=== PATIENT | female | born 1950 | race Caucasian/White ===

== ENCOUNTER → 2016-09-27 | Outpatient (CLI) | payer BC ==
[~2016-09-27] MED LIST: ABILIFY5 MG PO; AMITIZA24 MCG PO; ASPIRIN81 MG PO; ATIVAN1 MG PO; CALCIUM WITH VI1 TAB PO; CARAFATE1 G1 PO; ESTRADIOL1 MG PO; HYDROCODONE BIT1 T11 PO; HYOSCYAMINE0.125 M5 PO; LEVOTHYROXIN0.025 MG PO; LEVOTHYROXINE0.1 MG PO; LOSARTAN POTASS25 M1 PO; LOVAZA1 GM PO; MEDROL DOSEPAK4 MG PO; NORTRIPTYLINE50 MG PO; POTASSIUM CITR10 MEQ PO; PREMARIN0.3 MG PO; ROBITUSSIN AC 110 ML PO; SIMVASTATIN20 MG PO; SIMVASTATIN5 MG PO; SPIRIVA18 MCG PO; VENTOLIN H0.09 MG/AC INH
[2016-09-27 09:50] LABS: EST GLOM FILT AFRICAN AMERICAN > 60 ml/min
== END | disposition home or self-care (01) ==
LOC: LAB 08:53 → CT 09:00
PROVIDERS: Radiology Diagnostic Radiology
DX: R06.02 Shortness of breath (principal); R05 Cough; J44.9 Chronic obstructive pulmonary disease, unspecified

== ENCOUNTER → 2017-01-31 | Outpatient (CLI) | payer BC ==
[2017-01-31 13:11] LABS: EST GLOM FILT AFRICAN AMERICAN > 60 ml/min
== END | disposition home or self-care (01) ==
LOC: MRI 12:38
PROVIDERS: Internal Medicine
DX: I65.23 Occlusion and stenosis of bilateral carotid arteries (principal); G45.0 Vertebro-basilar artery syndrome

== ENCOUNTER → 2017-10-23 | Outpatient (CLI) | payer MEDICARE | END | disposition home or self-care (01) | LOC: MAMMO 10-16 13:42 | DX: Z12.31 Encounter for screening mammogram for malignant neoplasm of breast (principal) ==

== ENCOUNTER → 2018-01-23 | Outpatient (CLI) | payer MEDICARE | END | disposition home or self-care (01) | LOC: US 09:40 | DX: I65.21 Occlusion and stenosis of right carotid artery (principal) ==

== ENCOUNTER → 2018-03-27 | Outpatient (CLI) | payer MEDICARE | END | disposition home or self-care (01) | LOC: MRI 08:47 | DX: R41.3 Other amnesia (principal) ==

== ENCOUNTER → 2018-07-24 | Outpatient (CLI) | payer MEDICARE ==
[~2018-07-24] MED LIST changes: +PREDNISONE50 MG PO; +ZITHROMAX250 MG PO
== END | disposition home or self-care (01) ==
LOC: US 13:44
DX: I65.23 Occlusion and stenosis of bilateral carotid arteries (principal)

== ENCOUNTER → 2018-12-04 | Outpatient (CLI) | payer MEDICARE | END | disposition home or self-care (01) | LOC: MAMMO 10:00 | DX: Z12.31 Encounter for screening mammogram for malignant neoplasm of breast (principal) ==

== ENCOUNTER → 2019-07-08 | Outpatient (CLI) | payer MEDICARE ==
[2019-07-08 10:36] LABS: BASO % 0.4 % (0.0-1.0); EOS % 0.7 % (1.0-4.0); HEMOGLOBIN 13.6 g/dl (12.0-16.0); LYMPH # 1.7 10*3/uL (1.3-4.4); LYMPH % 29.5 % (27.0-41.0); MEAN CELL VOLUME 94.2 fl (81.0-99.0); MEAN CORPUSCULAR HGB 30.5 pg (27.0-31.0); MEAN CORPUSCULAR HGB CONC 32.4 g/dl (33.0-37.0); MEAN PLATELET VOLUME 10.7 fl (9.6-12.3); MONO # 0.5 10*3/uL (0.1-1.0); MONO % 8.3 % (3.0-9.0); NEUT # 3.5 10*3/uL (2.3-7.9); NEUT % 60.7 % (47.0-73.0); PLATELET COUNT AUTOMATED 212 10*3/uL (130-400); RED BLOOD COUNT 4.46 10*6/uL (4.10-5.10); RED CELL DISTRI WIDTH 12.1 % (0-14.5); WHITE BLOOD COUNT 5.7 10*3/uL (4.8-10.8)
[2019-07-08 11:04] LABS: ALBUMIN 4.1 gm/dl (3.1-4.5); ALKALINE PHOSPHATASE 96 U/L (45-117); BUN 15 mg/dl (7-24); CHLORIDE 99 mmol/L (98-107); CHOLESTEROL 255 mg/dL (<200); HDL CHOLESTEROL 68 mg/dl (40-60); LDL CHOLESTEROL 134 mg/dL (9-159); POTASSIUM 4.4 mmol/L (3.5-5.1); SGOT/AST 32 IU/L (3-35); SGPT/ALT 38 U/L (12-78); SODIUM 135 mmol/L (136-145); TOTAL PROTEIN 7.6 gm/dL (6.4-8.2); TRIGLYCERIDES 265 mg/dl (<150); VLDL CHOLESTEROL 53 mg/dL (6-40)
[2019-07-08 11:09] LABS: FREE T4 1.02 ng/dl (0.76-1.46)
[2019-07-08 11:26] LABS: VITAMIN D, 25-HYDROXY 40.5 ng/mL (30-100)
== END | disposition home or self-care (01) ==
LOC: LAB 10:13 → CT 11:00
PROVIDERS: Internal Medicine
DX: R06.02 Shortness of breath (principal); I10 Essential (primary) hypertension; E78.2 Mixed hyperlipidemia; E55.9 Vitamin D deficiency, unspecified; D52.9 Folate deficiency anemia, unspecified; D51.9 Vitamin B12 deficiency anemia, unspecified; R05 Cough

== ENCOUNTER → 2019-08-20 | Outpatient (CLI) | payer MEDICARE | END | disposition home or self-care (01) | LOC: CP 10:17 | DX: R05 Cough (principal); R06.02 Shortness of breath ==

== ENCOUNTER → 2019-08-26 | Outpatient (CLI) | payer MEDICARE | END | disposition home or self-care (01) | LOC: US 10:04 | DX: I65.23 Occlusion and stenosis of bilateral carotid arteries (principal) ==

== ENCOUNTER → 2019-09-22 | Outpatient (CLI) | payer MEDICARE | END | disposition home or self-care (01) | LOC: US 14:09 | DX: N95.0 Postmenopausal bleeding (principal) ==

== ENCOUNTER → 2020-03-31 | Outpatient (CLI) | payer MEDICARE | END | disposition home or self-care (01) | LOC: MAMMO 09:03 | DX: Z12.31 Encounter for screening mammogram for malignant neoplasm of breast (principal) ==

== ENCOUNTER → 2020-08-24 | Outpatient (CLI) | payer MEDICARE ==
[~2020-08-24] MED LIST changes: +CALCIUM 600 +1 EAC2 PO; +ESOMEPRAZOLE MA40 M1 PO; +FLOVENT HFA12 GM INH; -LEVOTHYROXIN0.025 MG PO; +LEVOTHYROXINE100 MC1 PO; +LEXAPRO5 M1 PO; +PLAVIX75 M1 PO; +RIVASTIGMINE TAR3 M1 PO; +TESSALON PERLE100 MG PO
== END | disposition home or self-care (01) ==
LOC: US 13:00
PROVIDERS: ATTEND Surgery Vascular Surgery
DX: I65.23 Occlusion and stenosis of bilateral carotid arteries (principal)

== ENCOUNTER 2020-08-31 22:55 | Emergency (ER) | payer MEDICARE ==
[~2020-08-31] VITALS: Ht 162.5 cm; Wt 68.0 kg
[~2020-08-31 22:55] MED LIST changes: -CALCIUM 600 +1 EAC2 PO; -ESOMEPRAZOLE MA40 M1 PO; -FLOVENT HFA12 GM INH; -LEXAPRO5 M1 PO; -PLAVIX75 M1 PO; -RIVASTIGMINE TAR3 M1 PO; -TESSALON PERLE100 MG PO
[2020-08-31] MEDS ORDERED: RIVASTIGMINE TAR3 M1 PO (23:55)
[2020-08-31] MEDS ORDERED: TESSALON PERLE100 MG PO (23:55)
[2020-08-31] MEDS ORDERED: ESOMEPRAZOLE MA40 M1 PO (23:57)
[2020-08-31] MEDS ORDERED: LEXAPRO5 M1 PO (23:58)
[2020-09-01] MEDS ORDERED: PLAVIX75 M1 PO
[2020-09-01] MEDS ORDERED: FLOVENT HFA12 GM INH
[2020-09-01] MEDS ORDERED: CALCIUM 600 +1 EAC2 PO (00:04)
== END 2020-09-01 01:30 | disposition home or self-care (01) ==
LOC: ED 22:55
DX: I10 Essential (primary) hypertension (principal); Z91.041 Radiographic dye allergy status; Z79.82 Long term (current) use of aspirin; Z79.899 Other long term (current) drug therapy; Z79.2 Long term (current) use of antibiotics

== ENCOUNTER 2020-10-04 11:26 | Emergency (ER) | payer MEDICARE ==
[~2020-10-04] VITALS: Ht 162.5 cm; Wt 67.6 kg
[~2020-10-04 11:26] MED LIST changes: +CALCIUM 600 +1 EAC2 PO; +ESOMEPRAZOLE MA40 M1 PO; +FLOVENT HFA12 GM INH; +LEXAPRO5 M1 PO; +PLAVIX75 M1 PO; +RIVASTIGMINE TAR3 M1 PO; +TESSALON PERLE100 MG PO
[2020-10-04 12:35] LABS: BASO % 0.3 % (0.0-1.0); EOS # 0.1 10*3/uL (0.0-0.4); HEMATOCRIT 40.7 % (37.0-47.0); LYMPH # 1.5 10*3/uL (1.3-4.4); LYMPH % 25.5 % (27.0-41.0); MEAN CELL VOLUME 91.5 fl (81.0-99.0); MEAN CORPUSCULAR HGB 29.4 pg (27.0-31.0); MEAN CORPUSCULAR HGB CONC 32.2 g/dl (33.0-37.0); MEAN PLATELET VOLUME 11.1 fl (9.6-12.3); MONO # 0.4 10*3/uL (0.1-1.0); MONO % 6.4 % (3.0-9.0); NEUT % 66.5 % (47.0-73.0); PLATELET COUNT AUTOMATED 171 10*3/uL (130-400); RED BLOOD COUNT 4.45 10*6/uL (4.10-5.10); RED CELL DISTRI WIDTH 12.4 % (0-14.5)
[2020-10-04 12:49] LABS: ACT PARTIAL THROMBO TIME 23.5 SECONDS (20.0-32.1)
[2020-10-04 12:52] LABS: ALKALINE PHOSPHATASE 84 U/L (45-117); BUN 9 mg/dl (7-24); CHLORIDE 103 mmol/L (98-107); POTASSIUM 4.1 mmol/L (3.5-5.1); SGOT/AST 21 IU/L (3-35); SGPT/ALT 32 U/L (12-78); SODIUM 137 mmol/L (136-145); TOTAL PROTEIN 7.4 gm/dL (6.4-8.2)
[2020-10-04 13:01] LABS: TROPONIN I < 0.015 ng/ml (<0.045)
== END 2020-10-04 13:53 | disposition home or self-care (01) ==
LOC: ED 11:26
PROVIDERS: Family Medicine
DX: I10 Essential (primary) hypertension (principal); M71.21 Synovial cyst of popliteal space [Baker], right knee; M79.89 Other specified soft tissue disorders; G43.909 Migraine, unspecified, not intractable, without status migrainosus; Z91.041 Radiographic dye allergy status; Z79.899 Other long term (current) drug therapy; Z79.82 Long term (current) use of aspirin; Z90.711 Acquired absence of uterus with remaining cervical stump; Z98.890 Other specified postprocedural states; Z87.891 Personal history of nicotine dependence

== ENCOUNTER → 2020-11-03 | Outpatient (CLI) | payer MEDICARE | END | disposition home or self-care (01) | LOC: US 11-02 13:30 | PROVIDERS: ATTEND Podiatrist Foot & Ankle Surgery | DX: M71.21 Synovial cyst of popliteal space [Baker], right knee (principal); M79.89 Other specified soft tissue disorders ==

== ENCOUNTER → 2020-11-23 | Outpatient (CLI) | payer MEDICARE | END | disposition home or self-care (01) | LOC: MRI 12:34 | PROVIDERS: ATTEND Podiatrist Foot & Ankle Surgery | DX: S86.811A Strain of other muscle(s) and tendon(s) at lower leg level, right leg, initial encounter (principal); M19.071 Primary osteoarthritis, right ankle and foot; M25.471 Effusion, right ankle; M25.771 Osteophyte, right ankle; R60.0 Localized edema; M65.861 Other synovitis and tenosynovitis, right lower leg; M76.61 Achilles tendinitis, right leg; M72.2 Plantar fascial fibromatosis; X58.XXXA Exposure to other specified factors, initial encounter; Y93.89 Activity, other specified; Y92.89 Other specified places as the place of occurrence of the external cause; Y99.8 Other external cause status ==

== ENCOUNTER → 2021-01-18 | Outpatient (CLI) | payer MEDICARE | END | disposition home or self-care (01) | LOC: CT 07:56 | PROVIDERS: ATTEND Internal Medicine | DX: I25.10 Atherosclerotic heart disease of native coronary artery without angina pectoris (principal) ==

== ENCOUNTER → 2021-04-26 | Outpatient (CLI) | payer MEDICARE ==
[2021-04-26 11:01] LABS: BASO % 0.2 % (0.0-1.0); EOS # 0.1 10*3/uL (0.0-0.4); EOS % 1.9 % (1.0-4.0); HEMATOCRIT 39.9 % (37.0-47.0); LYMPH # 1.5 10*3/uL (1.3-4.4); LYMPH % 27.7 % (27.0-41.0); MEAN CELL VOLUME 90.7 fl (81.0-99.0); MEAN CORPUSCULAR HGB 29.8 pg (27.0-31.0); MEAN CORPUSCULAR HGB CONC 32.8 g/dl (33.0-37.0); MONO # 0.4 10*3/uL (0.1-1.0); MONO % 7.3 % (3.0-9.0); NEUT # 3.3 10*3/uL (2.3-7.9); NEUT % 62.7 % (47.0-73.0); PLATELET COUNT AUTOMATED 203 10*3/uL (130-400); RED CELL DISTRI WIDTH 12.5 % (0-14.5); WHITE BLOOD COUNT 5.2 10*3/uL (4.8-10.8)
[2021-04-26 11:18] LABS: ALBUMIN 3.8 gm/dl (3.1-4.5); ALKALINE PHOSPHATASE 94 U/L (45-117); BUN 9 mg/dl (7-24); CHLORIDE 101 mmol/L (98-107); CHOLESTEROL 193 mg/dL (<200); CREATININE 0.65 mg/dL (0.55-1.02); FREE T4 1.28 ng/dl (0.76-1.46); LDL CHOLESTEROL 100 mg/dL (9-159); POTASSIUM 4.6 mmol/L (3.5-5.1); SGOT/AST 16 IU/L (3-35); SGPT/ALT 27 U/L (12-78); SODIUM 136 mmol/L (136-145); TOTAL PROTEIN 7.6 gm/dL (6.4-8.2); TRIGLYCERIDES 191 mg/dl (<150)
[2021-04-26 11:23] LABS: THYROID STIM HORMONE (HS) 0.055 uIU/ml (0.358-4.75)
[2021-04-26 12:03] LABS: VITAMIN D, 25-HYDROXY 39.2 ng/mL (30-100)
== END | disposition home or self-care (01) ==
LOC: MAMMO 00:08 → LAB 00:08 → MAMMO 11:00
PROVIDERS: ATTEND Internal Medicine
DX: Z12.31 Encounter for screening mammogram for malignant neoplasm of breast (principal); N64.89 Other specified disorders of breast; I10 Essential (primary) hypertension; E78.2 Mixed hyperlipidemia; E55.9 Vitamin D deficiency, unspecified; Z00.01 Encounter for general adult medical examination with abnormal findings

== ENCOUNTER → 2021-10-18 | Outpatient (CLI) | payer MEDICARE | LOC: US 08:48 | PROVIDERS: ATTEND Internal Medicine | DX: R10.9 Unspecified abdominal pain (principal) ==

== ENCOUNTER → 2021-11-22 | Outpatient (CLI) | payer MEDICARE | END | disposition home or self-care (01) | LOC: US 10:00 | PROVIDERS: ATTEND Surgery Vascular Surgery | DX: I65.23 Occlusion and stenosis of bilateral carotid arteries (principal) ==

== ENCOUNTER → 2022-01-04 | Outpatient (CLI) | payer MEDICARE | END | disposition home or self-care (01) | LOC: CT 08:49 | PROVIDERS: ATTEND Internal Medicine | DX: I70.0 Atherosclerosis of aorta (principal); J92.9 Pleural plaque without asbestos; I25.10 Atherosclerotic heart disease of native coronary artery without angina pectoris; K44.9 Diaphragmatic hernia without obstruction or gangrene ==

== ENCOUNTER 2022-02-06 14:50 | Emergency (ER) | payer MEDICARE ==
[~2022-02-06] VITALS: Ht 162.5 cm; Wt 63.5 kg
[2022-02-06 20:04] LABS: BASO % 0.3 % (0.0-1.0); EOS # 0.1 10*3/uL (0.0-0.4); EOS % 1.2 % (1.0-4.0); HEMATOCRIT 37.2 % (37.0-47.0); LYMPH # 0.9 10*3/uL (1.3-4.4); LYMPH % 12.3 % (27.0-41.0); MEAN CELL VOLUME 88.4 fl (81.0-99.0); MEAN CORPUSCULAR HGB CONC 32.8 g/dl (33.0-37.0); MEAN PLATELET VOLUME 10.5 fl (9.6-12.3); MONO # 0.6 10*3/uL (0.1-1.0); MONO % 8.4 % (3.0-9.0); NEUT # 5.8 10*3/uL (2.3-7.9); NEUT % 77.4 % (47.0-73.0); PLATELET COUNT AUTOMATED 251 10*3/uL (130-400); RED BLOOD COUNT 4.21 10*6/uL (4.10-5.10); RED CELL DISTRI WIDTH 13.2 % (0-14.5); WHITE BLOOD COUNT 7.5 10*3/uL (4.8-10.8)
[2022-02-06 20:21] LABS: ALKALINE PHOSPHATASE 91 U/L (45-117); BUN 8 mg/dl (7-24); CHLORIDE 96 mmol/L (98-107); CREATININE 0.59 mg/dL (0.55-1.02); POTASSIUM 4.1 mmol/L (3.5-5.1); SGOT/AST 26 IU/L (3-35); SGPT/ALT 29 U/L (12-78); SODIUM 133 mmol/L (136-145); TOTAL PROTEIN 7.3 gm/dL (6.4-8.2)
[2022-02-06] MEDS ORDERED: PREDNISONE20 M1 PO (22:31)
== END 2022-02-06 22:51 | disposition home or self-care (01) ==
LOC: ED 14:50
PROVIDERS: Internal Medicine
DX: U07.1 COVID-19 (principal); M94.0 Chondrocostal junction syndrome [Tietze]

== ENCOUNTER 2022-02-16 08:36 | Emergency (ER) | payer MEDICARE ==
[~2022-02-16] VITALS: Ht 162.5 cm; Wt 72.6 kg
[~2022-02-16 08:36] MED LIST changes: +PREDNISONE20 M1 PO
[2022-02-16 09:02] LABS: BASO % 0.2 % (0.0-1.0); EOS # 0.1 10*3/uL (0.0-0.4); EOS % 0.7 % (1.0-4.0); HEMATOCRIT 34.9 % (37.0-47.0); LYMPH # 0.7 10*3/uL (1.3-4.4); LYMPH % 8.6 % (27.0-41.0); MEAN CELL VOLUME 87.5 fl (81.0-99.0); MEAN CORPUSCULAR HGB 29.3 pg (27.0-31.0); MEAN CORPUSCULAR HGB CONC 33.5 g/dl (33.0-37.0); MEAN PLATELET VOLUME 10.9 fl (9.6-12.3); MONO # 0.6 10*3/uL (0.1-1.0); MONO % 6.7 % (3.0-9.0); NEUT % 83.4 % (47.0-73.0); PLATELET COUNT AUTOMATED 155 10*3/uL (130-400); RED BLOOD COUNT 3.99 10*6/uL (4.10-5.10); RED CELL DISTRI WIDTH 13.1 % (0-14.5); WHITE BLOOD COUNT 8.4 10*3/uL (4.8-10.8)
[2022-02-16 09:13] LABS: ACT PARTIAL THROMBO TIME 28.7 SECONDS (20.0-32.1); INTERNATIONAL NORM RATIO 1.2 (2.0-3.5)
[2022-02-16 09:24] LABS: ALKALINE PHOSPHATASE 91 U/L (45-117); BUN 6 mg/dl (7-24); CHLORIDE 98 mmol/L (98-107); CREATININE 0.56 mg/dL (0.55-1.02); POTASSIUM 3.7 mmol/L (3.5-5.1); SGOT/AST 28 IU/L (3-35); SGPT/ALT 31 U/L (12-78); SODIUM 132 mmol/L (136-145); TOTAL PROTEIN 6.4 gm/dL (6.4-8.2)
[2022-02-16] MEDS ORDERED: ZESTRIL20 MG PO (11:55)
== END 2022-02-16 12:15 | disposition home or self-care (01) ==
LOC: ED 08:36
PROVIDERS: Family Medicine
DX: I16.0 Hypertensive urgency (principal)

== ENCOUNTER 2022-03-10 07:17 | Emergency (ER) | payer MEDICARE ==
[~2022-03-10 07:17] MED LIST changes: +AMLODIPINE BESY10 MG PO; +CARVEDILOL25 MG PO; +CLONIDINE0.2 MG PO; +DICYCLOMINE HCL10 MG PO; +LISINOPRIL20 MG PO; +RIZATRIPTAN10 MG PO; +ZESTRIL20 MG PO
[2022-03-10] MEDS ORDERED: KEPPRA1000 MG PO (07:37)
[2022-03-10] MEDS ORDERED: OXYCODONE HCL5 MG PO (07:41)
[2022-03-10] MEDS ORDERED: MIRALAX POWDER17 G1 PO (07:43)
[2022-03-10] MEDS ORDERED: SENNA LAX8.6 M1 PO (07:44)
[2022-03-10 07:54] LABS: HEMATOCRIT 33.9 % (37.0-47.0); MEAN CELL VOLUME 85.6 fl (81.0-99.0); MEAN CORPUSCULAR HGB CONC 33.9 g/dl (33.0-37.0); MEAN PLATELET VOLUME 10.7 fl (9.6-12.3); PLATELET COUNT AUTOMATED 146 10*3/uL (130-400); RED BLOOD COUNT 3.96 10*6/uL (4.10-5.10); RED CELL DISTRI WIDTH 13.5 % (0-14.5); WHITE BLOOD COUNT 18.5 10*3/uL (4.8-10.8)
[2022-03-10 07:57] LABS: MANUAL DIFF REFLEX YES
[2022-03-10 08:07] LABS: ALKALINE PHOSPHATASE 153 U/L (45-117); BUN 22 mg/dl (7-24); CHLORIDE 98 mmol/L (98-107); POTASSIUM 3.5 mmol/L (3.5-5.1); SGOT/AST 33 IU/L (3-35); SGPT/ALT 40 U/L (12-78); SODIUM 132 mmol/L (136-145); TOTAL PROTEIN 5.7 gm/dL (6.4-8.2)
[2022-03-10 08:11] LABS: PLATELET SUFFICIENCY LOW (NORMAL); TOTAL CELLS COUNTED 100 #CELLS
== END 2022-03-10 19:35 | disposition short-term general hospital (02) ==
LOC: ED 07:17
PROVIDERS: Emergency Medicine
DX: R56.9 Unspecified convulsions (principal); Z20.822 Contact with and (suspected) exposure to COVID-19; Z88.8 Allergy status to other drugs, medicaments and biological substances; Z79.899 Other long term (current) drug therapy; Z90.710 Acquired absence of both cervix and uterus